=== PATIENT | male | born 1980 | race Caucasian/White ===

== ENCOUNTER 2016-04-30 14:32 | Emergency (ER) | payer OTHER ==
[2015-12-29 06:41] VITALS: BMI 28.8
== END 2016-04-30 16:46 | disposition home or self-care (01) ==
LOC: D.ER 14:32
DX: S61.412A Laceration without foreign body of left hand, initial encounter (principal); W45.8XXA Other foreign body or object entering through skin, initial encounter; Y93.89 Activity, other specified; Y92.89 Other specified places as the place of occurrence of the external cause; S69.82XA Other specified injuries of left wrist, hand and finger(s), initial encounter; F17.200 Nicotine dependence, unspecified, uncomplicated

== ENCOUNTER 2018-06-12 22:10 | Emergency (ER) | payer MEDICAID ==
[~2018-06-12] VITALS: Ht 188 cm; Wt 102.3 kg
[2018-06-12 22:16] VITALS: Ht 188 cm; Wt 102.3 kg
[2018-06-12 22:40] LABS: BASOPHILS 0.5 % (0-2); EOSINOPHILS 2.6 % (0-7); HEMATOCRIT 38.8 % (42.0-54.0); HEMOGLOBIN 13.1 g/dL (13.5-17.5); IMMATURE GRANULOCYTES 0.2 % (0-5); LYMPHOCYTES 20.3 % (15-50); MCH 29.6 pg (26.0-34.0); MCHC 33.8 g/dL (31.0-37.0); MCV 87.8 fL (80.0-100.0); NEUTROPHILS 70.4 % (40-80); PLATELET COUNT 428 10x3/uL (130-400); RBC 4.42 10x6/uL (4.20-6.10); WBC 12.1 10x3/uL (4.8-10.8)
[2018-06-12 22:50] LABS: ANION GAP 11.7 mmol/L (8-16); BILIRUBIN - TOTAL 0.33 mg/dL (0.2-1.3); CALCIUM 8.7 mg/dL (8.5-10.1); CARBON DIOXIDE 27.4 mmol/L (21.0-32.0); CREATININE - SERUM 1.3 mg/dL (0.6-1.3); POTASSIUM - SERUM 4.1 mmol/L (3.5-5.1); PROTEIN - SERUM 7.4 g/dL (6.4-8.2)
[2018-06-12 23:26] LABS: APPEARANCE CLEAR (CLEAR); BILIRUBIN NEGATIVE (NEGATIVE); COLOR YELLOW (YELLOW); GLUCOSE NEGATIVE (NEGATIVE); KETONE NEGATIVE (NEGATIVE); NITRITE NEGATIVE (NEGATIVE); PROTEIN NEGATIVE (NEGATIVE); SPECIFIC GRAVITY 1.015 (1.005-1.020); UROBILINOGEN NORMAL (NORMAL)
[2018-06-13 03:39] LABS: APTT 32.3 SECONDS (22.8-39.4); INR 0.94 (0.85-1.17); PROTIME 12.1 SECONDS (11.6-15.0)
[2018-06-13 05:03] VITALS: BP 131/77
== END 2018-06-13 05:03 | disposition other institution (70) ==
LOC: D.ER 22:10
PROVIDERS: Family Medicine
DX: N28.0 Ischemia and infarction of kidney (principal)

== ENCOUNTER → 2018-11-12 08:01 | Outpatient (CLI) | payer SELFPAY ==
[2018-06-12 22:16] VITALS: BMI 28.9
[~2018-11-12 08:01] MED LIST: CARAFATE1 G PO; NEXIUM40 MG PO; PROTONIX40 MG PO; RANITIDINE HCL150 M1 PO; TESSALON PERLE100 MG PO; ZOFRAN ODT4 MG/UDTAB PO
== END | disposition home or self-care (01) ==
LOC: D.CT 08:00
PROVIDERS: ATTEND Nurse Practitioner
DX: I82.3 Embolism and thrombosis of renal vein (principal)

== ENCOUNTER 2018-11-15 20:49 | Emergency (ER) | payer SELFPAY ==
[~2018-11-15] VITALS: Ht 188 cm; Wt 106.8 kg
[2018-11-15 21:05] VITALS: Ht 188 cm; Wt 106.8 kg
[2018-11-15] MEDS ORDERED: NEXIUM40 MG PO (21:07)
[2018-11-15 21:47] LABS: BASOPHILS 0.2 % (0-2); EOSINOPHILS 2.1 % (0-7); HEMATOCRIT 46.9 % (42.0-54.0); HEMOGLOBIN 16.2 g/dL (13.5-17.5); IMMATURE GRANULOCYTES 0.3 % (0-5); LYMPHOCYTES 8.3 % (15-50); MCH 29.7 pg (26.0-34.0); MCHC 34.5 g/dL (31.0-37.0); MCV 86.1 fL (80.0-100.0); MEAN PLATELET VOLUME 9.3 fL (7.4-10.4); MONOCYTES 3.8 % (2-11); NEUTROPHILS 85.3 % (40-80); PLATELET COUNT 377 10x3/uL (130-400); RBC 5.45 10x6/uL (4.20-6.10); RDW 16.5 % (11.5-14.5)
[2018-11-15 21:59] LABS: APPEARANCE CLEAR (CLEAR); BILIRUBIN NEGATIVE (NEGATIVE); COLOR YELLOW (YELLOW); GLUCOSE NEGATIVE (NEGATIVE); KETONE NEGATIVE (NEGATIVE); NITRITE NEGATIVE (NEGATIVE); PROTEIN NEGATIVE (NEGATIVE); SPECIFIC GRAVITY 1.005 (1.005-1.020); UROBILINOGEN NORMAL (NORMAL)
[2018-11-15 22:02] LABS: ALBUMIN 3.1 g/dL (3.4-5.0); ANION GAP 11.1 mmol/L (8-16); BILIRUBIN - TOTAL 0.61 mg/dL (0.2-1.3); CALCIUM 8.1 mg/dL (8.5-10.1); CREATININE - SERUM 1.2 mg/dL (0.6-1.3); POTASSIUM - SERUM 5.1 mmol/L (3.5-5.1); PROTEIN - SERUM 7.7 g/dL (6.4-8.2)
[2018-11-15] MEDS ORDERED: ZOFRAN ODT4 MG/UDTAB PO (23:12)
[2018-11-15 23:38] VITALS: BP 122/72
== END 2018-11-15 23:42 | disposition home or self-care (01) ==
LOC: D.ER 20:49
PROVIDERS: Family Medicine
DX: R10.10 Upper abdominal pain, unspecified (principal); K85.90 Acute pancreatitis without necrosis or infection, unspecified; B19.20 Unspecified viral hepatitis C without hepatic coma; F17.210 Nicotine dependence, cigarettes, uncomplicated; I10 Essential (primary) hypertension

== ENCOUNTER 2019-01-07 12:24 | Emergency (ER) | payer SELFPAY ==
[~2019-01-07] VITALS: Ht 188 cm; Wt 106.8 kg
[~2019-01-07 12:24] MED LIST changes: -CARAFATE1 G PO; -PROTONIX40 MG PO; -RANITIDINE HCL150 M1 PO; -TESSALON PERLE100 MG PO
[2019-01-07 12:28] VITALS: BP 131/82; Ht 188 cm; Wt 106.8 kg
[2019-01-07] MEDS ORDERED: CARAFATE1 G PO (13:21)
[2019-01-07] MEDS ORDERED: TESSALON PERLE100 MG PO (13:21)
[2019-01-07] MEDS ORDERED: RANITIDINE HCL150 M1 PO (13:21)
[2019-01-07] MEDS ORDERED: PROTONIX40 MG PO (13:21)
== END 2019-01-07 13:39 | disposition home or self-care (01) ==
LOC: D.ER 12:24
DX: R05 Cough (principal); K21.9 Gastro-esophageal reflux disease without esophagitis; K75.9 Inflammatory liver disease, unspecified; I10 Essential (primary) hypertension; Z72.0 Tobacco use